=== PATIENT | male | born 1960 | race Caucasian/White ===

== ENCOUNTER 2023-11-12 17:46 | Emergency (ER) | payer MEDICARE, BC ==
[~2023-11-12] VITALS: Ht 188 cm; Wt 135.4 kg
[2023-11-12 17:59] VITALS: BP 123/76; PULSE 81; RESP 18; TEMP 97.8; O2SAT 96
[2023-11-12] MEDS ORDERED: bacitracin 15gm ointment TP ONE (19:45)
[2023-11-12] MEDS ORDERED: LIDOCAINE 1%/EPI 1:100,000 inj. 10 ML multi-dose vial IJ ONE (19:45)
[2023-11-12] MEDS ORDERED: ceFAZolin 1gm IM kit IM ONE (19:45)
[2023-11-12] MEDS ORDERED: ibuprofen tablet 400 MG TABLET PO ONE (19:45)
[2023-11-12] MEDS ORDERED: IBUP-1984 PO (21:50)
[2023-11-12] MEDS ORDERED: CEPH-585 PO (21:50)
[2023-11-12] MEDS ORDERED: HYDR-3965 PO (21:50)
[2023-11-13] MEDS ORDERED: HYDR-3965 PO (14:14)
== END 2023-11-12 22:28 | disposition home or self-care (01) ==
LOC: ER 17:47
DX: S81.811A Laceration without foreign body, right lower leg, initial encounter (principal); Z88.1 Allergy status to other antibiotic agents; Z79.1 Long term (current) use of non-steroidal anti-inflammatories (NSAID); Z79.2 Long term (current) use of antibiotics; W22.8XXA Striking against or struck by other objects, initial encounter; Y93.89 Activity, other specified; Y92.89 Other specified places as the place of occurrence of the external cause; Y99.8 Other external cause status
CPT/HCPCS: 12034; 73590; 96372; 99284; J0690; J7030; A6258; A6449